=== PATIENT | female | born 1950 | race Hispanic/Latino ===

== ENCOUNTER 2022-04-06 15:06 | Emergency (ER) | payer MEDICARE ==
[~2022-04-06] VITALS: Ht 149.9 cm; Wt 52.2 kg
== END 2022-04-06 16:00 | disposition home or self-care (01) ==
LOC: ER 15:18
DX: M25.552 Pain in left hip (principal); S74 Injury of nerves at hip and thigh level; X58.XXXD Exposure to other specified factors, subsequent encounter
CPT/HCPCS: 99282